=== PATIENT | female | born 1935 | race African-American/Black ===

== ENCOUNTER 2016-07-20 09:48 | Day surgery (SDC) | payer MEDICARE, MEDICAID ==
[~2016-07-20] VITALS: Ht 157.5 cm; Wt 94.8 kg
[~2016-07-20 09:48] MED LIST: ASPI325T2; LORA5TAB8 PO; NAPR-681 PO; NIFE60TA8; RMST15; SIMV20TA6
[2016-07-20] MEDS ORDERED: HYDROCODONE/ACETAMINOPHEN 5/325MG TABLET PO PRN (11:15)
[2016-07-20 11:28] LABS: EOSINOPHILS % 1.6 % (0.0-5.0); HEMATOCRIT. 41.7 % (36.0-48.0); MEAN CORPUSCULAR HEMOGLOBIN 30.6 pg (28.0-32.0); MEAN CORPUSCULAR HGB CONC 33.7 g/dL (31.0-37.0); MONOCYTES % 9.4 % (2.0-8.0); PLATELET 163 x1000/uL (130-400); RED BLOOD CELL COUNT 4.58 mill/uL (4.2-5.4); RED CELL DISTRIBUTION WIDTH 14.6 % (11.6-14.6); WHITE BLOOD COUNT 3.8 x1000/uL (4.5-11.0)
[2016-07-20 11:33] LABS: CHLORIDE 108 mEq/L (98-107); INDEX HEMOLYSI 1 (1-3); INDEX ICTERIC 1 (1-4); INDEX LIPEMIC 1 (1-3)
[2016-07-20 11:37] LABS: INR 1.1; PARTIAL THROMBOPLASTIN TIME 27.6 sec (24.0-34.0); PROTHROMBIN TIME 11.9 sec
[2016-07-20 11:41] LABS: ANION GAP 10; CALCIUM 9.2 mg/dL (8.5-10.1); CARBON DIOXIDE 30 mEq/L (21-32); UREA NITROGEN BLOOD 10 mg/dL (7-21); eGFR > 60 mL/min (>60)
[2016-07-20] MEDS ORDERED: LOSA50TA20 PO (12:05)
[2016-07-20] MEDS ORDERED: GABA-531 PO (12:05)
[2016-07-20] MEDS ORDERED: ATOR20TA65 PO (12:05)
== END 2016-07-20 19:00 | disposition home or self-care (01) ==
LOC: CCL 09:48
PROVIDERS: ATTEND Surgery Vascular Surgery
DX: Z45.018 Encounter for adjustment and management of other part of cardiac pacemaker (principal); J43.8 Other emphysema; J44.9 Chronic obstructive pulmonary disease, unspecified; E66.9 Obesity, unspecified; E78.00 Pure hypercholesterolemia, unspecified; K21.9 Gastro-esophageal reflux disease without esophagitis
CPT/HCPCS: 33208; 36415; 80048; 85025; 85610; 85730; 93005; C1785

== ENCOUNTER → 2019-02-07 | Outpatient (CLI) | payer MEDICARE, MEDICAID ==
[~2019-02-07] MED LIST changes: +ASPI-986; -ASPI325T2; +ATOR20TA65 PO; +GABA-531 PO; +LOSA50TA41 PO; -NIFE60TA8; +[UNRECOGNIZED DRUG - CODE]
== END | disposition home or self-care (01) ==
LOC: NM 07:26
PROVIDERS: ATTEND Internal Medicine
DX: M47.816 Spondylosis without myelopathy or radiculopathy, lumbar region (principal); M41.86 Other forms of scoliosis, lumbar region; M89.8X9 Other specified disorders of bone, unspecified site
CPT/HCPCS: 78306; A9503

== ENCOUNTER → 2022-02-16 | Outpatient (CLI) | payer MEDICARE, MEDICAID ==
[~2022-02-16] MED LIST changes: -GABA-531 PO; +GABA-532 PO; +NIFE-72; +SIMV-43; -SIMV20TA6; -[UNRECOGNIZED DRUG - CODE]
== END | disposition home or self-care (01) ==
LOC: CT 10:46
PROVIDERS: ATTEND Neurological Surgery
DX: M47.816 Spondylosis without myelopathy or radiculopathy, lumbar region (principal); M51.37 Other intervertebral disc degeneration, lumbosacral region; M43.16 Spondylolisthesis, lumbar region; M48.061 Spinal stenosis, lumbar region without neurogenic claudication; M41.85 Other forms of scoliosis, thoracolumbar region; M54.9 Dorsalgia, unspecified; N28.1 Cyst of kidney, acquired
CPT/HCPCS: 72131

== ENCOUNTER → 2023-12-19 | Day surgery (SDC) | payer MEDICARE, MEDICAID ==
[~2023-12-19] VITALS: Ht 158.8 cm; Wt 66.7 kg
[~2023-12-19] MED LIST changes: +AMLO5TAB88 PO; +BACITRACIN 14GM TUBE TOP ONE; +BUPIVACAINE HCL/PF 0.5% (5MG/ML) 10ML ONE; +CLINDAMYCIN 600MG PREMIX 50 ML IV ONE; +CLINDAMYCIN 900MG PREMIX 50 ML IV NR; +CLON-493 PO; +ETOMIDATE 2MG/ML 10ML VIAL IV ONE; +FENTANYL CITRATE/PF 50MCG/ML 2ML VIAL ONE; +HYDR-4001 PO; +HYDR50TA40 PO; +LABETALOL 5MG/ML 4ML INJ IV PRN; +LIDOCAINE HCL/EPINEPHRINE 1%-EPI 1:100,000 20ML VIAL ONE; +METO-539 PO; +MIDAZOLAM HCL 2 MG/2 ML VIAL ONE; +MIRT-140; +NALOXONE HCL 0.4MG/ML VIAL IV PRN; +OMEP20CA14 PO; +PROPOFOL 200MG/20ML VIAL IV ONE; -RMST15
[2023-12-19] MEDS: LACTATED RINGERS 1,000 ML IV SCH (06:42)
[2023-12-19] MEDS: MEPERIDINE HCL/PF 25MG/ML CPJ IV PRN (09:10)
[2023-12-19] MEDS: ONDANSETRON HCL 4MG/2ML INJ IV PRN (09:30)
[2023-12-19] MEDS: HYDROMORPHONE HCL/PF 1MG/ML INJ IV PRN (11:25)
[2023-12-19 14:00] VITALS: BP 150/82; PULSE 60; RESP 16
[2023-12-19] MEDS: ACETAMINOPHEN WITH CODEINE 300/30MG TABLET PO ONE (14:00)
== END | disposition home or self-care (01) ==
LOC: OR 05:45
PROVIDERS: ATTEND Surgery
DX: K62.89 Other specified diseases of anus and rectum (principal); K64.8 Other hemorrhoids; I10 Essential (primary) hypertension; E78.5 Hyperlipidemia, unspecified; K21.9 Gastro-esophageal reflux disease without esophagitis; Z79.899 Other long term (current) drug therapy; Z98.890 Other specified postprocedural states; Z88.0 Allergy status to penicillin; Z88.8 Allergy status to other drugs, medicaments and biological substances; Z82.49 Family history of ischemic heart disease and other diseases of the circulatory system
CPT/HCPCS: 45171; 88304; J3010; J3490 ×5; J2250; J2405; J2704; J1170; J2175; C1893